=== PATIENT | female | born 1985 | race Caucasian/White ===

== ENCOUNTER 2023-09-11 14:13 | Outpatient (AMB) | payer BC, SELFPAY ==
--- NOTE | 2023-09-11 14:58 | AM.OFFWIN_ITS ---
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 Patient complaining of sinus/nasal congestion, rhinorrhea with green nasal drainage, postnasal drip, and a productive cough with green sputum x1 week. Patient states her symptoms started to improve but then acutely worsened last night. She denies any fevers or chills. She denies any chest pain or shortness of breath. She denies any abdominal pain or nausea/vomiting/diarrhea. [facility] Social History (System 08/18/23 @ 13:15 by Sonia Andrade) Patient Tobacco Use Status: Never used Tobacco Review of Systems Const All systems reviewed & are unremarkable except as noted in HPI and below Reports no additional complaints Eyes Reports no additional complaints ENT Reports no additional complaints Card Reports no additional complaints Resp Reports no additional complaints GI Reports no additional complaints Reports no additional complaints Musc Reports no additional complaints Skin/Breast Reports system reviewed and no additional complaints, except as documented Neuro Reports no additional complaints Psych Reports no additional complaints Endo Reports no additional complaints Jb/Lymph Reports no additional complaints Aller/Immun Reports no additional complaints Physical Exam Vital Signs: Last Vital Signs Temp 98.6 F 09/11/23 15:04 Pulse 62 09/11/23 15:04 BP 104/62 09/11/23 15:04 Pulse Ox 98 09/11/23 15:04 BMI result Body Mass Index 20.8 Const Other: Vital signs reviewed. Constitutional: Non-toxic appearing. No acute distress. Well-developed and well-nourished. HEENT: Normocephalic and atraumatic. Right tympanic membrane is erythematous and edematous, left tympanic membrane is slightly erythematous and edematous. External auditory canals without erythema or edema bilaterally. Moist mucous membranes. No pharyngeal erythema or exudates. Skin: Warm and dry. No rashes or lesions noted. Neck: Full and painless range of motion. No cervical lymphadenopathy. Cardio: Regular rate and rhythm. No murmurs, gallops, or rubs. No lower extremity edema. No JVD. Pulmonary: No respiratory distress. No accessory muscle usage. Clear to auscultation bilaterally without wheezing, crackles, or rhonchi. Gastrointestinal: Soft, nontender, and nondistended in all 4 quadrants. Musculoskeletal: Normal range of motion in joints throughout the body. No deformity or other signs of injury. Neuro: Alert and oriented x4. Cranial nerves 2-12 grossly intact. No focal deficits appreciated. Psych: Normal mood and affect. Assessment & Plan Assessment & Plan (1) Acute bacterial rhinosinusitis: Code(s): J01.90 - Acute sinusitis, unspecified; B96.89 - Other specified bacterial agents as the cause of diseases classified elsewhere Plan: This is a 38-year-old female who presented to the office complaining of sinus congestion, rhinorrhea with green drainage, and postnasal drip with productive cough with green sputum. She states her symptoms started to improve but then acutely worsened last night, consistent with double worsening. Patient very likely has an acute bacterial rhinosinusitis as well as acute otitis media (right greater than left). Patient was sent home on p.o. amoxicillin/clavulanate 875/125 mg twice daily x7 days. Recommended symptomatic management including rest, increased fluids, advil/tylenol for pain/fever, and over the counter throat lozenges/decongestants. Patient advised to follow up here or go to the emergency room for worsening/persistent symptoms. Patient verbalized understanding and is agreeable with the plan. (2) Acute otitis media: Code(s): H66.90 - Otitis media, unspecified, unspecified ear Medications: New amoxicillin-pot clavulanate 875-125 mg 1 tab PO BID 14 tabs 0RF Coding Level of Care Code New Pt Level 3 (50545) Diagnoses Acute bacterial rhinosinusitis J01.90; B96.89 Acute otitis media H66.90
[2023-09-11 15:04] VITALS: BP 104/62; PULSE 62; TEMP 37; O2SAT 98; BMI 20.8
== END 2023-09-11 16:30 | disposition home or self-care (01) ==
PROVIDERS: PCP Pediatrics; Visit Provider Physician Assistant Medical
DX: J01.90 Acute sinusitis, unspecified (principal); B96.89 Other specified bacterial agents as the cause of diseases classified elsewhere; H66.90 Otitis media, unspecified, unspecified ear
CPT/HCPCS: 99203